=== PATIENT | male | born 1950 | race African-American/Black ===

== ENCOUNTER 2023-09-24 08:59 | Outpatient (CLI) | payer OTHER | END 2023-09-24 09:00 | disposition home or self-care (01) | LOC: ULT 08:59 | PROVIDERS: ATTEND Urology | DX: N50.82 Scrotal pain (principal); N40.1 Benign prostatic hyperplasia with lower urinary tract symptoms; N43.3 Hydrocele, unspecified; N50.3 Cyst of epididymis; N50.89 Other specified disorders of the male genital organs; R93.89 Abnormal findings on diagnostic imaging of other specified body structures | CPT/HCPCS: 76870; 93976 ==

== ENCOUNTER 2023-10-30 07:57 | Outpatient (CLI) | payer OTHER ==
[2023-10-30] MEDS ORDERED: Iopamidol 370 76% 100 ML VIAL ONE (12:58)
== END 2023-10-30 07:58 | disposition home or self-care (01) ==
LOC: BICCT 07:57
PROVIDERS: ATTEND Urology
DX: R31.29 Other microscopic hematuria (principal); R97.20 Elevated prostate specific antigen [PSA]; K57.30 Diverticulosis of large intestine without perforation or abscess without bleeding; N32.89 Other specified disorders of bladder; Z87.891 Personal history of nicotine dependence
CPT/HCPCS: 74178; 82565; Q9967

== ENCOUNTER 2024-04-08 08:53 | Outpatient (CLI) | payer OTHER | END 2024-04-08 08:54 | disposition home or self-care (01) | LOC: BICRAD 08:53 | PROVIDERS: ATTEND Chiropractor | DX: J44.9 Chronic obstructive pulmonary disease, unspecified (principal); J98.4 Other disorders of lung | CPT/HCPCS: 71046 ==